=== PATIENT | female | born 1995 | race Caucasian/White ===

== ENCOUNTER 2016-11-14 20:40 | Emergency (ER) | payer BC ==
[~2016-11-14] VITALS: Ht 167.6 cm; Wt 63.2 kg
[2016-11-14 20:50] VITALS: TEMP 37.1; Ht 167.6 cm; Wt 63.2 kg
[2016-11-14] MEDS ORDERED: PHENAZOPYRIDINE HCL 200 MG TAB PO STA (21:14)
[2016-11-14] MEDS ORDERED: CEFTRIAXONE SOD INJ 1 GM ADDVIAL IV STA (21:14)
[2016-11-14 21:18] LABS: URINE APPEARANCE CLEAR (CLEAR); URINE BILIRUBIN NEG (NEG); URINE COLOR YELLOW; URINE NITRITE NEG (NEG); URINE SPECIFIC GRAVITY 1.006 (1.000-1.030); UROBILINOGEN NEG (NEG)
--- NOTE | 2016-11-14 21:25 | EMERGENCY ROOM VISIT NOTE ---
History Report prepared by Brian: Michael Herrera Under the Supervision of: Talia LambertO. First contact with patient: 20:54 Chief Complaint: URINARY SYMPTOMS Stated Complaint: UTI History of Present Illness The patient is a 21 year old female who presents to the Emergency Room with complaints of worsening right sided flank pain beginning a couple days ago. The patient states that she believes she has a UTI. She reports that she has been experiencing dysuria, increased urinary frequency, a subjective fever, and chills for the past few days. The patient notes that she did experience hematuria, but it has resolved. She states that she has a history of UTIs, but she has not had one like this before. The patient reports that she has been drinking gross amounts of water and cranberry juice. She notes that she called her PCP and asked for an antibiotic. The patient states that she should be getting the antibiotic tomorrow, but she does not know what antibiotic the prescription was for. She denies nausea, using OTC medication, chance of being , and missing a dose of her control. Source of History: patient Onset: a couple days ago Position: other (right flank) Timing: worsening Associated Symptoms: + fevers, + chills, No nausea Note: Associated symptoms: dysuria, increased urinary frequency Denies: chance of being Review of Systems See HPI for pertinent positives & negatives. A total of 10 systems reviewed and were otherwise negative. Past Medical & Surgical Medical Problems: (1) UTI (urinary tract infection) Family History Patient reports no known family medical history. Social History Smoking Status: Never Smoker Housing Status: lives with roommate Occupation Status: [employer] student Current/Historical Medications Scheduled Control Pills ( Control Pills), 1 TAB PO DAILY Cephalexin (Keflex), 1 CAP PO BID Allergies Coded Allergies: No Known Allergies (Unverified , 06/21/14) Physical Exam Vital Signs Date Time Temp Pulse Resp B/P (MAP) Pulse Ox O2 Delivery O2 Flow Rate FiO2 11/14/16 22:44 60 20 133/82 99 11/14/16 20:50 37.1 110 18 131/80 95 Room Air Physical Exam GENERAL: alert, uncomfortable appearing, well nourished, no distress, non-toxic EYE EXAM: normal conjunctiva, PERRL and EOM's grossly intact OROPHARYNX: no exudate, no erythema, lips, buccal mucosa, and tongue normal and mucous membranes are moist NECK: supple, no nuchal rigidity, no adenopathy, non-tender LUNGS: Clear to auscultation. Normal chest wall mechanics HEART: no murmurs, S1 normal and S2 normal ABDOMEN: abdomen soft, non-tender, normo-active bowel sounds, no masses, no rebound or guarding. BACK: Back is symmetrical on inspection and there is no deformity, no midline tenderness, no true CVA tenderness. SKIN: no rashes and no bruising UPPER EXTREMITIES: upper extremities are grossly normal. LOWER EXTREMITIES: No pitting edema. NEURO EXAM: Normal sensorium, cranial nerves II-XII grossly intact, normal speech, no gross weakness of arms, no gross weakness of legs. Medical Decision & Procedures ER Provider Diagnostic Interpretation: CT:Per my review, radiologist interpretation. (RENAL)RETROPERITONEA COMP HISTORY: Pain back pain, uti COMPARISON: None. FINDINGS: Right kidney: Maximum dimension 10.5 cm. No evidence for hydronephrosis. Slight increase in cortical echogenicity Left kidney: No evidence for hydronephrosis. Maximum dimension 11.6 cm. Slight increase in cortical echogenicity. Normal corticomedullary differentiation and cortical thickness. Bladder: No bladder wall thickening. The bilateral ureteral jets were identified. IMPRESSION: Normal renal ultrasound. Slight increase in cortical echogenicity which may indicate a component of nonobstructive renal insufficiency. The above report was generated using voice recognition software. It may contain grammatical, syntax or spelling errors. Electronically signed by: Gregory Marques M.D. 11/14/2016 9:57 PM Dictated Date/Time: 11/14/2016 9:56 PM Laboratory Results 11/14/16 21:20 Red Blood Count 3.98, Mean Corpuscular Volume 92.7, Mean Corpuscular Hemoglobin 31.7, Mean Corpuscular Hemoglobin Concent 34.1, Mean Platelet Volume 9.6, Neutrophils (%) (Auto) 89.9, Lymphocytes (%) (Auto) 5.2, Monocytes (%) (Auto) 4.4, Eosinophils (%) (Auto) 0.2, Basophils (%) (Auto) 0.1, Neutrophils # (Auto) 8.91, Lymphocytes # (Auto) 0.52, Monocytes # (Auto) 0.44, Eosinophils # (Auto) 0.02, Basophils # (Auto) 0.01 11/14/16 21:20 Test 11/14/16 21:00 11/14/16 21:20 Urine Color YELLOW Urine Appearance CLEAR (CLEAR) Urine pH 7.0 (4.5-7.5) Urine Specific [place] 1.006 (1.000-1.030) Urine Protein NEG (NEG) Urine Glucose (UA) NEG (NEG) Urine Ketones NEG (NEG) Urine Occult Blood NEG (NEG) Urine Nitrite NEG (NEG) Urine Bilirubin NEG (NEG) Urine Urobilinogen NEG (NEG) Urine Leukocyte Esterase LARGE (NEG) Urine WBC (Auto) >30 /hpf (0-5) Urine RBC (Auto) 0-4 /hpf (0-4) Urine Hyaline Casts (Auto) 0 /lpf (0-5) Urine Epithelial Cells (Auto) 20-30 /lpf (0-5) Urine Bacteria (Auto) 1+ (NEG) White Blood Count 9.92 K/uL (4.8-10.8) Red Blood Count 3.98 M/uL (4.2-5.4) Hemoglobin 12.6 g/dL (12.0-16.0) Hematocrit 36.9 % (37-47) Mean Corpuscular Volume 92.7 fL (80-100) Mean Corpuscular Hemoglobin 31.7 pg (25-34) Mean Corpuscular Hemoglobin Concent 34.1 g/dl (32-36) Platelet Count 257 K/uL (130-400) Mean Platelet Volume 9.6 fL (7.4-10.4) Neutrophils (%) (Auto) 89.9 % Lymphocytes (%) (Auto) 5.2 % Monocytes (%) (Auto) 4.4 % Eosinophils (%) (Auto) 0.2 % Basophils (%) (Auto) 0.1 % Neutrophils # (Auto) 8.91 K/uL (1.4-6.5) Lymphocytes # (Auto) 0.52 K/uL (1.2-3.4) Monocytes # (Auto) 0.44 K/uL (0.11-0.59) Eosinophils # (Auto) 0.02 K/uL (0-0.5) Basophils # (Auto) 0.01 K/uL (0-0.2) RDW Standard Deviation 41.5 fL (36.4-46.3) RDW Coefficient of Variation 12.2 % (11.5-14.5) Immature Granulocyte % (Auto) 0.2 % Immature Granulocyte # (Auto) 0.02 K/uL (0.00-0.02) Anion Gap 8.0 mmol/L (3-11) Est Creatinine Clear Calc Drug Dose 92.5 ml/min Estimated GFR () 105.9 Estimated GFR (Non- 91.4 BUN/Creatinine Ratio 8.8 (10-20) Calcium Level 9.3 mg/dl (8.5-10.1) Laboratory results per my review. Medications Administered Medications (Trade) Dose Ordered Sig/Loyda Route Start Time Stop Time Status Last Admin Dose Admin Phenazopyridine HCl (Pyridium Tab) 200 mg NOW STAT PO 11/14/16 21:14 11/14/16 21:15 DC 11/14/16 21:26 200 MG Ceftriaxone Sodium (Rocephin Inj) 1 gm NOW STAT IV 11/14/16 21:14 11/14/16 21:15 DC 11/14/16 21:26 1 GM ED Course 2107: The patient was evaluated in room A12B. A complete history and physical exam was performed. 2113: Ordered Ceftriaxone Sodium 1gm IV, Phenazopyridine HCl 200mg PO 0: Upon reevaluation, the patient is feeling better. I discussed the findings and the treatment plan with the patient. She verbalizes agreement and understanding. The patient was discharged home. Medical Decision Differential diagnosis includes: UTI, pyelonephritis, renal failure, renal stone. No evidence of anna pyelonephritis, likely ascending UTI given development of more systemic symptoms. Doubt bacteremia/sepsis. Doubt kidney stone. Doubt additional occult GI or NURSE LDR pathology. Pt aware of all results. Discussed sx to watch/return for, she verbalized understanding and were agreeable with plan. Discussed antibiotics, hydration, otc pain meds. Medication Reconcilliation Current Medication List: was personally reviewed by me Blood Pressure Screening Patient's blood pressure: Normal blood pressure Impression Primary Impression: Symptoms of urinary tract infection Additional Impressions: Dysuria Back pain Scribe Attestation The scribe's documentation has been prepared under my direction and personally reviewed by me in its entirety. I confirm that the note above accurately reflects all work, treatment, procedures, and medical decision making performed by me. Departure Information Dispostion Home / Self-Care Prescriptions Cephalexin (KEFLEX) 500 Mg Cap 1 CAP PO BID for 7 Days, #14 CAP Prov: Gin Guerrero, DO 11/14/16 Referrals No Doctor, Assigned (PCP) Forms HOME CARE DOCUMENTATION FORM, IMPORTANT VISIT INFORMATION Patient Instructions [facility] Additional Instructions Please continue drinking plenty of water. Please take the antibiotics as prescribed. You may use Tylenol and ibuprofen as needed for pain. If you have any worsening pain, develop vomiting, fevers, blood in the urine, abnormal vaginal discharge or bleeding, diarrhea, or you've any other new concerns, please return the emergency room. Problem Qualifiers Additional Impressions: Back pain Back pain location: low back pain Chronicity: acute Back pain laterality: bilateral Sciatica presence: without sciatica Qualified Codes: M54.5 - Low back pain
[2016-11-14] MEDS ORDERED: BCPILLS PO (21:27)
[2016-11-14 21:34] LABS: BASO % 0.1 %; BASO ABS # 0.01 K/uL (0-0.2); COMPLETE YES; EOS % 0.2 %; HEMATOCRIT 36.9 % (37-47); IG% 0.2 %; LYMPH % 5.2 %; LYMPH ABS # 0.52 K/uL (1.2-3.4); MEAN CELL VOLUME 92.7 fL (80-100); MEAN CORPUSCULAR HEMOGLOBIN 31.7 pg (25-34); MEAN CORPUSCULAR HGB CONC 34.1 g/dl (32-36); MEAN PLATELET VOLUME 9.6 fL (7.4-10.4); MONO % 4.4 %; NEUT % 89.9 %; PLATELET COUNT 257 K/uL (130-400); RED BLOOD COUNT 3.98 M/uL (4.2-5.4); WHITE BLOOD COUNT 9.92 K/uL (4.8-10.8)
[2016-11-14 21:39] LABS: MANUAL MICROSCOPIC REQUIRED? NO; REVIEW REQ? YES
[2016-11-14 21:51] LABS: BUN/CREATININE RATIO 8.8 (10-20); CALCIUM 9.3 mg/dl (8.5-10.1); CREATININE 0.9 mg/dl (0.60-1.20); POTASSIUM 3.7 mmol/L (3.5-5.1)
--- NOTE | 2016-11-14 21:59 | DIAGNOSTIC IMAGING REPORT ---
(RENAL)RETROPERITONEA COMP HISTORY: Pain back pain, uti COMPARISON: None. FINDINGS: Right kidney: Maximum dimension 10.5 cm. No evidence for hydronephrosis. Slight increase in cortical echogenicity Left kidney: No evidence for hydronephrosis. Maximum dimension 11.6 cm. Slight increase in cortical echogenicity. Normal corticomedullary differentiation and cortical thickness. Bladder: No bladder wall thickening. The bilateral ureteral jets were identified. IMPRESSION: Normal renal ultrasound. Slight increase in cortical echogenicity which may indicate a component of nonobstructive renal insufficiency. The above report was generated using voice recognition software. It may contain grammatical, syntax or spelling errors. Electronically signed by: Gregory Marques M.D. 11/14/2016 9:57 PM Dictated Date/Time: 11/14/2016 9:56 PM
[2016-11-14 22:01] LABS: URINE EPITHELIAL CELL AUTO 20-30 /lpf (0-5)
[2016-11-14] MEDS ORDERED: CEPH-571 PO (22:17)
[2016-11-14 22:44] VITALS: BP 133/82; PULSE 60; O2SAT 99
== END 2016-11-14 22:25 | disposition home or self-care (01) ==
LOC: C.EDB 20:40 → C.EDA 22:25
DX: R30.0 Dysuria (principal); M54.5 Low back pain; Z87.440 Personal history of urinary (tract) infections; Z79.3 Long term (current) use of hormonal contraceptives